=== PATIENT | male | born 1965 | race Caucasian/White ===

== ENCOUNTER 2019-07-14 05:54 | Day surgery (SDC) | payer OTHER ==
[~2019-07-14 05:54] MED LIST: SOD CHLORIDE 0.9% 1,000 ML IV
[2019-07-14] MEDS: CEFAZOLIN 2 GM/50 ML (PMX) 50 ML IVPB (07:00)
[2019-07-14] MEDS: BUPIVACAINE 0.5%/EPI (SDV) 30 ML INJ INJ (07:11)
[2019-07-14] MEDS: BUPIVACAINE 0.25%/EPI (SDV) 10 ML INJ INJ (07:11)
[2019-07-14] MEDS: SOD CHLORIDE 0.9% 1,000 ML IV (07:37)
[2019-07-14] MEDS: ACETAMINOPHEN 500 MG TAB PO (07:37)
[2019-07-14] MEDS ORDERED: LIDOCAINE 2% (SDV) 5 ML INJ (08:10)
[2019-07-14] MEDS ORDERED: PROPOFOL 40 ML (08:10)
[2019-07-14] MEDS ORDERED: ROCURONIUM 50 MG INJ (08:10)
[2019-07-14] MEDS ORDERED: FENTAnyl 50 MCG/ML VIAL (08:10)
[2019-07-14] MEDS ORDERED: ONDANSETRON 4 MG INJ (08:11)
[2019-07-14] MEDS ORDERED: FAMOTIDINE 20 MG INJ (08:11)
[2019-07-14] MEDS ORDERED: MIDAZOLAM 1 MG/ML 2 ML INJ (08:11)
[2019-07-14] MEDS ORDERED: ROPIVACAINE 0.5 % 30 ML VIAL ×2 (08:34→09:01)
[2019-07-14] MEDS ORDERED: BUPIVACAINE 0.5%/EPI (SDV) 30 ML INJ (08:56)
[2019-07-14] MEDS ORDERED: LABETALOL HCL 20MG INJ IV (09:00)
[2019-07-14] MEDS ORDERED: HYDROmorphONE 1 MG/5 ML IV SYRINGE IV ×3 (09:00)
[2019-07-14] MEDS ORDERED: hydrALAzine 20 MG INJ IV (09:00)
[2019-07-14] MEDS ORDERED: FENTAnyl 50 MCG/ML VIAL IV (09:00)
[2019-07-14] MEDS ORDERED: morphine 2 MG INJ IV ×3 (09:00→11:00)
[2019-07-14] MEDS ORDERED: ALBUTEROL 0.083% (NEB) 2.5 MG/3 ML AMP HHN (09:00)
[2019-07-14] MEDS ORDERED: OXYCODONE/ACETAMINOPHEN (5/325) TAB PO (09:00)
[2019-07-14] MEDS ORDERED: EPHEDrine 25 MG/5 ML SYG IV (09:00)
[2019-07-14] MEDS ORDERED: DIPHENHYDRAMINE 50 MG INJ IV (09:00)
[2019-07-14] MEDS ORDERED: SUGAMMADEX SODIUM 200 MG/2 ML VIAL IV (09:41)
[2019-07-14] MEDS ORDERED: IBUPROFEN 600 MG TAB PO (11:00)
[2019-07-14] MEDS ORDERED: HYDROCODONE/APAP (5/325) TAB PO ×2 (11:00)
[2019-07-14] MEDS ORDERED: KETOROLAC 30 MG INJ IV (11:00)
[2019-07-14] MEDS ORDERED: ONDANSETRON 4 MG INJ IV (11:00)
[2019-07-14] MEDS: MEPERIDINE 25 MG INJ IV (11:04)
[2019-07-14] MEDS: ONDANSETRON 4 MG INJ IV (11:04)
[2019-07-14] MEDS: FENTAnyl 50 MCG/ML VIAL IV ×2 (11:19→11:33)
[2019-07-14] MEDS: OXYCODONE/ACETAMINOPHEN (5/325) TAB PO (11:46)
== END 2019-07-14 14:21 | disposition home or self-care (01) ==
LOC: SDS 05:54
DX: K80.10 Calculus of gallbladder with chronic cholecystitis without obstruction (principal)
CPT/HCPCS: 47562; 88304